=== PATIENT | female | born 1930 | race Asian ===

== ENCOUNTER 2017-06-07 18:12 | Inpatient (IN) | payer MEDICARE, OTHER ==
[~2017-06-07] VITALS: Ht 157.5 cm; Wt 52.9 kg
[2017-06-07 18:34] LABS: GLUCOSE,POINT OF CARE 173 MG/DL (70-110)
[2017-06-07] MEDS ORDERED: METF500T4 PO (18:36)
[2017-06-07] MEDS ORDERED: OSEL75 PO (18:36)
[2017-06-07] MEDS ORDERED: AMLO-511 PO (18:36)
[2017-06-07] MEDS ORDERED: ATEN50TA PO (18:36)
[2017-06-07] MEDS ORDERED: LEVO500 PO (18:36)
[2017-06-07] MEDS ORDERED: SIMV-260 PO (18:36)
[2017-06-07 19:07] LABS: BASOPHILS % (AUTO) 1.1 % (0.0-2.0); EOSINOPHILS # (AUTO) 0.09 K/uL (0.00-0.70); HEMATOCRIT 38.9 % (36-46); HEMOGLOBIN 13.4 g/dL (12.0-16.0); LYMPHOCYTES % (AUTO) 21.9 % (22.0-44.0); MEAN CORPUSCULAR HEMOGLOBIN 32.1 pg (26.0-34.0); MEAN CORPUSCULAR HGB CONC 34.6 G/dL (31.0-37.0); MEAN CORPUSCULAR VOLUME 93 fL (80-100); MONOCYTES # (AUTO) 1.1 K/uL (0.1-1.0); MONOCYTES % (AUTO) 12.2 % (2.0-9.0); NEUTROPHILS # (AUTO) 5.8 K/uL (1.8-7.7); NEUTROPHILS % (AUTO) 63.8 % (40.0-70.0); PLATELET COUNT (AUTO) 286 K/uL (150-450); RED BLOOD CELL COUNT(AUTO) 4.19 MIL/uL (4.00-5.20)
[2017-06-07 19:25] LABS: ALBUMIN 3.7 g/dL (3.4-5.0); BILIRUBIN,TOTAL 0.3 mg/dL (0.1-1.0); CALCIUM, TOTAL 8.6 mg/dL (8.8-10.5); CREATININE 0.97 mg/dL (0.60-1.30); POTASSIUM 3.4 mmol/L (3.5-5.1); TOTAL PROTEIN, SERUM 7.6 g/dL (6.4-8.2)
[2017-06-07 19:32] LABS: LACTIC ACID 2.7 mmol/L (0.4-2.0)
[2017-06-07 20:07] LABS: INFLUENZA TYPE A NEGATIVE FOR TYPE A (NEGATIVE); INFLUENZA TYPE B NEGATIVE FOR TYPE B (NEGATIVE)
[2017-06-07] MEDS ORDERED: ALBUTEROL SULFATE 5 MG/ML 20 ML NEB SOLN [BULK] NEB ONE (20:15)
[2017-06-07] MEDS ORDERED: SODIUM CHLORIDE 0.9% 1,000 ML IV ONE ×2 (20:15→21:15)
[2017-06-07] MEDS ORDERED: IPRATROPIUM BROMIDE 0.5 MG/2.5 ML NEB SOLUTION NEB ONE (20:15)
[2017-06-07] MEDS ORDERED: 0.9% SODIUM CHLORIDE 5 ML NEB SOLUTION NEB ONE (20:28)
[2017-06-07 20:46] LABS: APPEARANCE,URINE CLEAR (CLEAR); BILIRUBIN,URINE NEGATIVE (NEGATIVE); GLUCOSE, URINE (UA) NEGATIVE (NEGATIVE); KETONES,URINE NEGATIVE (NEGATIVE); LEUKOCYTE ESTERASE ,URINE NEGATIVE (NEGATIVE); NITRATE,URINE NEGATIVE (NEGATIVE); OCCULT BLOOD,URINE TRACE (NEGATIVE); PROTEIN,URINE NEGATIVE (NEGATIVE); UROBILINOGEN,URINE 0.2 mg/dL (<=1.0)
[2017-06-07 20:59] LABS: BACTERIA,URINE None Seen /HPF (None Seen); RBC,URINE None Seen /HPF (0-2); SQUAMOUS EPITHELIAL CELL,UR Few /LPF (None Seen); WBC,URINE None Seen /HPF (0-5)
[2017-06-07] MEDS ORDERED: CefTRIAXone 1 GM/DEXTROSE 50 ML IV ONE (21:15)
[2017-06-07] MEDS ORDERED: AZITHROMYCIN 500 MG/NS 250 ML IV ONE (21:15)
[2017-06-07] MEDS ORDERED: ACETAMINOPHEN 325 MG TABLET PO PRN (21:15)
[2017-06-07] MEDS ORDERED: 0.9% SODIUM CHLORIDE 10 ML SYRINGE IVP PRN (21:15)
[2017-06-07] MEDS ORDERED: ONDANSETRON HCL 4 MG/2 ML VIAL IVP PRN (21:15)
[2017-06-07] MEDS: ALBUTEROL SULFATE 2.5 MG/0.5 ML NEB SOLUTION NEB SCH (22:45)
[2017-06-07] MEDS: IPRATROPIUM BROMIDE 0.5 MG/2.5 ML NEB SOLUTION NEB SCH (22:47)
[2017-06-08] VITALS (7 sets, daily range): BP systolic 132–185; BP diastolic 50–88
[2017-06-08] MEDS: ALBUTEROL SULFATE 2.5 MG/0.5 ML NEB SOLUTION NEB SCH ×2 (03:14→06:47)
[2017-06-08] MEDS: IPRATROPIUM BROMIDE 0.5 MG/2.5 ML NEB SOLUTION NEB SCH ×2 (03:14→06:47)
[2017-06-08 08:03] LABS: GLUCOSE,POINT OF CARE 153 MG/DL (70-110)
[2017-06-08] MEDS ORDERED: ONDANSETRON HCL 4 MG/2 ML VIAL IVP PRN (11:30)
[2017-06-08] MEDS ORDERED: DEXTROSE 50%-WATER 25 GM/50 ML SYRINGE IVP PRN (11:30)
[2017-06-08] MEDS ORDERED: OxyCODONE HCL/ACETAMINOPHEN 5-325 MG TABLET PO PRN (11:30)
[2017-06-08] MEDS ORDERED: 0.9% SODIUM CHLORIDE 10 ML SYRINGE IVP PRN (11:30)
[2017-06-08] MEDS: ATENOLOL 50 MG TABLET PO SCH (13:01)
[2017-06-08] MEDS: SIMVASTATIN 20 MG TABLET PO SCH (13:01)
[2017-06-08] MEDS: AmLODIPine BESYLATE 5 MG TABLET PO SCH (13:04)
[2017-06-08] MEDS: PANTOPRAZOLE SODIUM 40 MG/VIAL IVP SCH (13:04)
[2017-06-08] MEDS: OxyCODONE HCL/ACETAMINOPHEN 5-325 MG TABLET PO PRN ×2 (13:37→18:39)
[2017-06-08 15:18] LABS: GLUCOSE,POINT OF CARE 102 MG/DL (70-110)
[2017-06-08] MEDS: SODIUM CHLORIDE 0.9% 1,000 ML IV SCH (15:56)
[2017-06-08] MEDS: ALBUTEROL SULFATE 2.5 MG/0.5 ML NEB SOLUTION NEB PRN ×2 (18:38→19:56)
[2017-06-08] MEDS: IPRATROPIUM BROMIDE 0.5 MG/2.5 ML NEB SOLUTION NEB PRN ×2 (18:38→19:56)
[2017-06-08 18:42] LABS: GLUCOSE,POINT OF CARE 89 MG/DL (70-110)
[2017-06-08] MEDS: GuaiFENesin/D-METHORPHAN [SUGAR-FREE] 200-20MG/10 ML SYRUP UDCUP PO PRN (19:28)
[2017-06-08] MEDS: DOCUSATE SODIUM 100 MG CAPSULE PO SCH (20:27)
[2017-06-08] MEDS: CefTRIAXone 1 GM/DEXTROSE 50 ML IV SCH (20:27)
[2017-06-08] MEDS: AZITHROMYCIN 500 MG/NS 250 ML IV SCH (21:16)
[2017-06-09] VITALS (10 sets, daily range): BP systolic 109–188; BP diastolic 47–86
[2017-06-09] MEDS: SODIUM CHLORIDE 0.9% 1,000 ML IV SCH (00:47)
[2017-06-09 09:18] LABS: GLUCOSE,POINT OF CARE 104 MG/DL (70-110)
[2017-06-09 09:29] LABS: BASOPHILS # (AUTO) 0.08 K/uL (0.00-0.20); BASOPHILS % (AUTO) 0.7 % (0.0-2.0); EOSINOPHILS # (AUTO) 0.32 K/uL (0.00-0.70); EOSINOPHILS % (AUTO) 2.71 % (1.0-6.0); HEMATOCRIT 41.9 % (36-46); LYMPHOCYTES # (AUTO) 2.6 K/uL (1.0-4.8); LYMPHOCYTES % (AUTO) 21.7 % (22.0-44.0); MEAN CORPUSCULAR HEMOGLOBIN 32.1 pg (26.0-34.0); MEAN CORPUSCULAR HGB CONC 33.4 G/dL (31.0-37.0); MEAN CORPUSCULAR VOLUME 96 fL (80-100); MONOCYTES # (AUTO) 1.2 K/uL (0.1-1.0); MONOCYTES % (AUTO) 10.5 % (2.0-9.0); NEUTROPHILS # (AUTO) 7.6 K/uL (1.8-7.7); NEUTROPHILS % (AUTO) 64.4 % (40.0-70.0); PLATELET COUNT (AUTO) 268 K/uL (150-450); RED BLOOD CELL COUNT(AUTO) 4.36 MIL/uL (4.00-5.20); RED CELL DISTRIBUTION WIDTH 12.5 % (11.5-14.5)
[2017-06-09 09:55] LABS: CALCIUM, TOTAL 8.9 mg/dL (8.8-10.5); CREATININE 0.93 mg/dL (0.60-1.30); POTASSIUM 3.8 mmol/L (3.5-5.1)
[2017-06-09] MEDS: DOCUSATE SODIUM 100 MG CAPSULE PO SCH ×2 (10:01→22:49)
[2017-06-09] MEDS: ATENOLOL 50 MG TABLET PO SCH (10:01)
[2017-06-09] MEDS: PANTOPRAZOLE SODIUM 40 MG/VIAL IVP SCH (10:01)
[2017-06-09] MEDS: SIMVASTATIN 20 MG TABLET PO SCH (10:02)
[2017-06-09] MEDS: AmLODIPine BESYLATE 5 MG TABLET PO SCH (10:02)
[2017-06-09 10:46] LABS: MAGNESIUM 2.1 mg/dL (1.80-2.40); PHOSPHORUS 2.9 mg/dL (2.5-4.9)
[2017-06-09 12:48] LABS: GLUCOSE,POINT OF CARE 113 MG/DL (70-110)
[2017-06-09] MEDS: DEXTROSE 5%-WATER 1,000 ML IV SCH (15:52)
[2017-06-09] MEDS: GuaiFENesin/D-METHORPHAN [SUGAR-FREE] 200-20MG/10 ML SYRUP UDCUP PO PRN (15:55)
[2017-06-09 16:02] LABS: GLUCOSE,POINT OF CARE 105 MG/DL (70-110)
[2017-06-09 17:17] LABS: GLUCOSE,POINT OF CARE 135 MG/DL (70-110)
[2017-06-09 21:02] LABS: CALCIUM, TOTAL 8.6 mg/dL (8.8-10.5); CREATININE 0.99 mg/dL (0.60-1.30); POTASSIUM 3.1 mmol/L (3.5-5.1)
[2017-06-09 21:33] LABS: GLUCOSE,POINT OF CARE 140 MG/DL (70-110)
[2017-06-09] MEDS: CefTRIAXone 1 GM/DEXTROSE 50 ML IV SCH (22:49)
[2017-06-09] MEDS: AZITHROMYCIN 500 MG/NS 250 ML IV SCH (22:50)
[2017-06-10] VITALS (7 sets, daily range): BP systolic 103–178; BP diastolic 26–87
[2017-06-10] MEDS: DEXTROSE 5%-WATER 1,000 ML IV SCH (01:31)
[2017-06-10 06:49] LABS: CALCIUM, TOTAL 8.8 mg/dL (8.8-10.5); CREATININE 1.04 mg/dL (0.60-1.30); PHOSPHORUS 3.9 mg/dL (2.5-4.9); POTASSIUM 3.3 mmol/L (3.5-5.1); THYROID STIMULATING HORMONE 4.81 uIU/mL (0.36-3.74)
[2017-06-10 07:02] LABS: GLUCOSE,POINT OF CARE 144 MG/DL (70-110)
[2017-06-10] MEDS: INSULIN ASPART 100 UNITS/ML SQ PRN (07:32)
[2017-06-10 09:52] LABS: GLUCOSE,POINT OF CARE 82 MG/DL (70-110)
[2017-06-10] MEDS: PANTOPRAZOLE SODIUM 40 MG/VIAL IVP SCH (10:18)
[2017-06-10] MEDS: DOCUSATE SODIUM 100 MG CAPSULE PO SCH ×2 (10:19→21:00)
[2017-06-10] MEDS: ATENOLOL 50 MG TABLET PO SCH (10:19)
[2017-06-10] MEDS: AmLODIPine BESYLATE 5 MG TABLET PO SCH (10:21)
[2017-06-10] MEDS: SIMVASTATIN 20 MG TABLET PO SCH (10:22)
[2017-06-10 11:23] LABS: GLUCOSE,POINT OF CARE 94 MG/DL (70-110)
[2017-06-10 17:53] LABS: GLUCOSE,POINT OF CARE 112 MG/DL (70-110)
[2017-06-10] MEDS: BUDESONIDE 0.5 MG/2 ML NEB SOLUTION NEB SCH (21:00)
[2017-06-11] VITALS (7 sets, daily range): BP systolic 135–163; BP diastolic 73–80
[2017-06-11] MEDS ORDERED: SODIUM CHLORIDE 0.9% 250 ML IV ONE (00:07)
[2017-06-11] MEDS: CefTRIAXone 1 GM/DEXTROSE 50 ML IV SCH (00:28)
[2017-06-11] MEDS: GuaiFENesin/D-METHORPHAN [SUGAR-FREE] 200-20MG/10 ML SYRUP UDCUP PO PRN (00:28)
[2017-06-11] MEDS: AZITHROMYCIN 500 MG/NS 250 ML IV SCH (01:30)
[2017-06-11 07:44] LABS: BASOPHILS # (AUTO) 0.08 K/uL (0.00-0.20); BASOPHILS % (AUTO) 0.8 % (0.0-2.0); EOSINOPHILS # (AUTO) 0.46 K/uL (0.00-0.70); EOSINOPHILS % (AUTO) 4.53 % (1.0-6.0); HEMATOCRIT 41.3 % (36-46); HEMOGLOBIN 13.7 g/dL (12.0-16.0); LYMPHOCYTES # (AUTO) 1.6 K/uL (1.0-4.8); LYMPHOCYTES % (AUTO) 16.2 % (22.0-44.0); MEAN CORPUSCULAR HEMOGLOBIN 31.8 pg (26.0-34.0); MEAN CORPUSCULAR HGB CONC 33.1 G/dL (31.0-37.0); MEAN CORPUSCULAR VOLUME 96 fL (80-100); MONOCYTES # (AUTO) 0.8 K/uL (0.1-1.0); MONOCYTES % (AUTO) 7.6 % (2.0-9.0); NEUTROPHILS # (AUTO) 7.2 K/uL (1.8-7.7); NEUTROPHILS % (AUTO) 70.9 % (40.0-70.0); PLATELET COUNT (AUTO) 272 K/uL (150-450); RED BLOOD CELL COUNT(AUTO) 4.29 MIL/uL (4.00-5.20); RED CELL DISTRIBUTION WIDTH 12.3 % (11.5-14.5)
[2017-06-11 07:58] LABS: HEMOGLOBIN A1C 6.6 % (4.5-6.2)
[2017-06-11 08:09] LABS: B-TYPE NATRIURETIC PEPTIDE 77 pg/mL (0-100)
[2017-06-11 08:42] LABS: ANION GAP 13 mmol/L (8-16); CALCIUM, TOTAL 8.7 mg/dL (8.8-10.5); CARBON DIOXIDE 26 mmol/L (22-29); CHLORIDE 96 mmol/L (98-107); CHOL/HDL RATIO 1.8 (3.9-5.7); CHOLESTEROL 148 mg/dL (131-200); CREATINE KINASE, TOTAL 65 U/L (26-192); FREE T4 (FREE THYROXINE) 1.11 ng/dL (0.76-1.46); GLOMERULAR FILTR. RATE CALC 47 mL/min (>60); GLUCOSE,RANDOM 232 mg/dL (70-110); HDL CHOLESTEROL 82 mg/dL (40-60); LDL CHOL (CALC.) 47 mg/dL (0-130); PHOSPHORUS 4.5 mg/dL (2.5-4.9); POTASSIUM 3.5 mmol/L (3.5-5.1); SODIUM SERUM 135 mmol/L (136-145); TRIGLYCERIDES 96 mg/dL (15-150); UREA NITROGEN, BLOOD 19 mg/dL (7-18)
[2017-06-11] MEDS ORDERED: LOSARTAN POTASSIUM 25 MG TABLET PO SCH ×2 (09:00→21:00)
[2017-06-11 09:14] LABS: FOLATE SERUM 22.7 ng/mL (5.4-)
[2017-06-11] MEDS: PANTOPRAZOLE SODIUM 40 MG/VIAL IVP SCH (09:30)
[2017-06-11] MEDS: AmLODIPine BESYLATE 5 MG TABLET PO SCH (09:30)
[2017-06-11] MEDS: SIMVASTATIN 20 MG TABLET PO SCH (09:30)
[2017-06-11] MEDS: DOCUSATE SODIUM 100 MG CAPSULE PO SCH ×2 (09:30→20:24)
[2017-06-11 11:35] LABS: SODIUM,URINE RANDOM 63 mmol/l (20-110)
[2017-06-11 11:52] LABS: OSMOLALITY,URINE 402 mOS/kg (50-1200)
[2017-06-11] MEDS: INSULIN ASPART 100 UNITS/ML SQ PRN ×2 (12:14→17:33)
[2017-06-11 17:03] LABS: GLUCOMETER DEV NAME(LOC) 5N 1M; GLUCOSE,POINT OF CARE 105 MG/DL (70-110)
[2017-06-11] MEDS: MetFORMIN HCL 500 MG TABLET PO SCH (17:34)
[2017-06-11] MEDS ORDERED: 0.9% SODIUM CHLORIDE 5 ML NEB SOLUTION NEB ONE (20:05)
[2017-06-11] MEDS: ALBUTEROL SULFATE 2.5 MG/0.5 ML NEB SOLUTION NEB PRN (20:28)
[2017-06-11] MEDS: BUDESONIDE 0.5 MG/2 ML NEB SOLUTION NEB SCH (20:28)
[2017-06-11] MEDS: LOSARTAN POTASSIUM 50 MG TABLET PO SCH (20:40)
[2017-06-11 20:43] LABS: GLUCOMETER DEV NAME(LOC) 5N 1M; GLUCOSE,POINT OF CARE 127 MG/DL (70-110)
[2017-06-12 04:44] VITALS: BP 156/77
[2017-06-12] MEDS: INSULIN ASPART 100 UNITS/ML SQ PRN (05:59)
[2017-06-12 06:49] LABS: BASOPHILS % (AUTO) 0.6 % (0.0-2.0); HEMATOCRIT 38.3 % (36-46); LYMPHOCYTES # (AUTO) 1.9 K/uL (1.0-4.8); MEAN CORPUSCULAR HEMOGLOBIN 32.1 pg (26.0-34.0); MEAN CORPUSCULAR VOLUME 95 fL (80-100); MONOCYTES # (AUTO) 0.9 K/uL (0.1-1.0); MONOCYTES % (AUTO) 10.2 % (2.0-9.0); NEUTROPHILS # (AUTO) 5.2 K/uL (1.8-7.7); NEUTROPHILS % (AUTO) 62.2 % (40.0-70.0); PLATELET COUNT (AUTO) 271 K/uL (150-450); RED BLOOD CELL COUNT(AUTO) 4.05 MIL/uL (4.00-5.20); RED CELL DISTRIBUTION WIDTH 12.5 % (11.5-14.5)
[2017-06-12 07:41] LABS: CREATININE 1.11 mg/dL (0.60-1.30); POTASSIUM 3.7 mmol/L (3.5-5.1)
[2017-06-12 07:53] VITALS: BP 122/69
[2017-06-12] MEDS: BUDESONIDE 0.5 MG/2 ML NEB SOLUTION NEB SCH (07:56)
[2017-06-12] MEDS: PANTOPRAZOLE SODIUM 40 MG/VIAL IVP SCH (09:40)
[2017-06-12] MEDS: MetFORMIN HCL 500 MG TABLET PO SCH ×2 (09:41→18:10)
[2017-06-12] MEDS: SIMVASTATIN 20 MG TABLET PO SCH (09:41)
[2017-06-12] MEDS: BENZONATATE 100 MG CAPSULE PO PRN ×2 (09:41→18:15)
[2017-06-12] MEDS: AmLODIPine BESYLATE 5 MG TABLET PO SCH (09:41)
[2017-06-12] MEDS: DOCUSATE SODIUM 100 MG CAPSULE PO SCH (09:41)
[2017-06-12] MEDS: LOSARTAN POTASSIUM 50 MG TABLET PO SCH (09:41)
[2017-06-12 12:06] VITALS: BP 123/86
[2017-06-12] MEDS ORDERED: LOSA50TA37 PO (14:46)
[2017-06-12] MEDS ORDERED: ALBU8HFA IH (14:47)
[2017-06-12] MEDS ORDERED: BENZ-51 PO (14:47)
[2017-06-13 06:58] LABS: GLUCOMETER DEV NAME(LOC) 5N 1M; GLUCOSE,POINT OF CARE 166 MG/DL (70-110)
[2017-06-13 22:33] LABS: GLUCOMETER DEV NAME(LOC) 5S 1L; GLUCOSE,POINT OF CARE 132 MG/DL (70-110)
[2017-06-13 22:33] LABS: GLUCOMETER DEV NAME(LOC) 5S 1L; GLUCOSE,POINT OF CARE 136 MG/DL (70-110)
[2017-06-13 22:34] LABS: GLUCOMETER DEV NAME(LOC) 5S 1L; GLUCOSE,POINT OF CARE 193 MG/DL (70-110)
[2017-06-13 22:34] LABS: GLUCOMETER DEV NAME(LOC) 5S 1L; GLUCOSE,POINT OF CARE 126 MG/DL (70-110)
[2017-06-13 22:34] LABS: GLUCOMETER DEV NAME(LOC) 5S 1L; GLUCOSE,POINT OF CARE 121 MG/DL (70-110)
== END 2017-06-12 19:00 | disposition home or self-care (01) | DRG 872 ==
LOC: EMS 18:15 → AHU 06-08 08:48 → 5N 06-08 14:33 → AHU 06-08 17:45 → ICUN 06-08 20:53 → 5S 06-10 21:30 → 5N 06-11 05:04
PROVIDERS: ADMIT Internal Medicine; ATTEND Internal Medicine
DX: A41.9 Sepsis, unspecified organism (principal); E87.2 Acidosis; J44.1 Chronic obstructive pulmonary disease with (acute) exacerbation; E87.1 Hypo-osmolality and hyponatremia; J45.901 Unspecified asthma with (acute) exacerbation; I11.0 Hypertensive heart disease with heart failure; I50.9 Heart failure, unspecified; E11.9 Type 2 diabetes mellitus without complications; Z82.49 Family history of ischemic heart disease and other diseases of the circulatory system; Z83.3 Family history of diabetes mellitus; Z79.899 Other long term (current) drug therapy; Z79.84 Long term (current) use of oral hypoglycemic drugs; E03.9 Hypothyroidism, unspecified; E78.00 Pure hypercholesterolemia, unspecified; E78.5 Hyperlipidemia, unspecified; E87.6 Hypokalemia; J02.9 Acute pharyngitis, unspecified; K29.70 Gastritis, unspecified, without bleeding; T50.905A Adverse effect of unspecified drugs, medicaments and biological substances, initial encounter; Y92.89 Other specified places as the place of occurrence of the external cause
CPT/HCPCS: 71046; 82306; 82533; 82607; 82746; 82962; 83036; 83605; 83735; 83935; 84100; 84145; 84300; 84439; 84443; 84481; 87040; 87804; 93005; 93306; 94640; 94644; 96374; 96375; 97161; 97166; 99285; C9113; J0456; J0696; J2405; J7030; J7050; J7060

== ENCOUNTER → 2017-09-13 | Outpatient (CLI) | payer MEDICARE, OTHER ==
[~2017-09-13] MED LIST: ALBU8HFA IH; AMLO-511 PO; BENZ-51 PO; LOSA50TA37 PO; METF500T4 PO; SIMV-260 PO
== END | disposition home or self-care (01) ==
LOC: RADPV 14:53
PROVIDERS: ATTEND Internal Medicine Geriatric Medicine
DX: M17.0 Bilateral primary osteoarthritis of knee (principal)